=== PATIENT | male | born 1945 | race Caucasian/White ===

== ENCOUNTER 2018-12-28 23:09 | Observation (INO) | payer MEDICARE ==
[~2018-12-28] VITALS: Ht 175.3 cm; Wt 98.9 kg
[2018-12-28 23:38] LABS: BASOPHILS # (AUTO) 0.02 x10^3/uL (0-0.1); BASOPHILS % (AUTO) 0 % (0-1); EOSINOPHILS # (AUTO) 0.19 x10^3/uL (0-0.4); EOSINOPHILS % (AUTO) 3 % (1-7); LYMPHOCYTES # (AUTO) 1.65 x10^3/uL (1-3.4); LYMPHOCYTES % (AUTO) 23 % (22-44); MD NO; MEAN CORPUSCULAR HEMOGLOBIN 30.4 pg (27.5-34.5); MEAN CORPUSCULAR HGB CONC 32.8 g/dL (33.2-36.2); MEAN CORPUSCULAR VOLUME 92.7 fL (81-97); MEAN PLATELET VOLUME 7.6 fL (7.4-10.4); MONOCYTES % (AUTO) 7 % (2-9); NEUTROPHILS # (AUTO) 4.89 x10^3/uL (1.8-6.8); NEUTROPHILS % (AUTO) 67 % (42-75); PLATELET COUNT 181 x10^3/uL (130-400); RED BLOOD COUNT 4.65 x10^6/uL (4.38-5.82)
[2018-12-28 23:49] LABS: ALANINE AMINOTRANSFERASE 16 U/L (12-78); ALBUMIN 3.4 g/dL (3.4-5.0); ANION GAP 9 mmol/L (5-15); CHLORIDE 109 mmol/L (98-107); CREATININE 2.02 mg/dL (0.7-1.3)
[2018-12-28 23:54] LABS: ALKALINE PHOSPHATASE 92 U/L (45-117); BILIRUBIN,TOTAL 0.4 mg/dL (0.2-1.0); FREE T4 (FREE THYROXINE) 0.91 ng/dL (0.76-1.46); TOTAL PROTEIN 7.3 g/dL (6.4-8.2); TROPONIN I < 0.015 ng/mL (0.000-0.045)
[2018-12-28] MEDS ORDERED: ALBUTEROL/IPRATROPIUM 2.5MG/0.5MG, 3 ML ONE (23:59)
[2018-12-29] MEDS ORDERED: ALBUTEROL/IPRATROPIUM 2.5MG/0.5MG, 3 ML NPPB ONE
[2018-12-29] MEDS ORDERED: SODIUM CHLORIDE 0.9% 1,000 ML IV ONE (00:28)
--- NOTE | 2018-12-29 01:02 | NUR ---
ADMITTING MD HAS BEEN AT BEDSIDE FOR THE PAST 40 MINUTES. MD STATES MIGHT NOW ADMIT PT. AWAITING MD TO GET OFF PHONE FOR DISPO.
--- NOTE | 2018-12-29 01:21 | NUR ---
ADMITTING MD BACK AT BEDSIDE FOR DISPO DECISION
[2018-12-29] MEDS ORDERED: TAMS-11 PO (01:45)
[2018-12-29] MEDS ORDERED: MOMETASONE (01:45)
[2018-12-29] MEDS ORDERED: CINA60TA PO (01:45)
[2018-12-29] MEDS ORDERED: FORMOTEROL (01:45)
[2018-12-29] MEDS ORDERED: VITAMIN B12 (01:45)
[2018-12-29] MEDS ORDERED: PRAV40TA PO (01:45)
[2018-12-29] MEDS ORDERED: CHOL200040 PO (01:45)
[2018-12-29] MEDS ORDERED: GLIP5TAB3 PO (01:45)
[2018-12-29] MEDS ORDERED: ASPI-496 PO (01:45)
[2018-12-29] MEDS ORDERED: PRED5TAB PO (01:45)
[2018-12-29] MEDS ORDERED: TACR1CAP4 PO (01:45)
[2018-12-29] MEDS ORDERED: VALA500T PO (01:45)
[2018-12-29] MEDS ORDERED: KCL (01:45)
[2018-12-29] MEDS ORDERED: FERR324T5 PO (01:45)
[2018-12-29] MEDS ORDERED: OXYB5TAB7 PO (01:45)
[2018-12-29] MEDS ORDERED: MYCO250C4 PO (01:45)
[2018-12-29] MEDS ORDERED: TACROLIMUS 1 MG CAPSULE PO SCH (02:00)
[2018-12-29] MEDS ORDERED: NITROGLYCERIN 0.4 MG BOTTLE (25 TABS) SL PRN (02:00)
[2018-12-29 02:15] VITALS: BP 123/71
[2018-12-29 02:16] VITALS: BP 136/78
[2018-12-29 02:17] VITALS: BP 129/76
[2018-12-29 02:28] LABS: HEMOGLOBIN A1C 6.9 % (4.2-6.3)
[2018-12-29] MEDS ORDERED: FLOMAX MC SCH (02:30)
[2018-12-29 03:15] LABS: TROPONIN I 0.029 ng/mL (0.000-0.045)
[2018-12-29 08:12] VITALS: BP 148/71
[2018-12-29] MEDS ORDERED: OXYBUTYNIN CHLORIDE 5 MG TABLET PO SCH (09:00)
[2018-12-29] MEDS ORDERED: PRAVASTATIN SODIUM 40 MG TABLET PO SCH (09:00)
[2018-12-29] MEDS ORDERED: SODIUM CHLORIDE FLUSH 10ML SYR IVF SCH (09:00)
[2018-12-29] MEDS ORDERED: CHOLECALCIFEROL 5,000u TAB PO SCH (09:00)
[2018-12-29] MEDS ORDERED: ASPIRIN 81 MG TABLET EC PO SCH (09:00)
[2018-12-29] MEDS ORDERED: VALACYCLOVIR 500MG TABLET PO SCH (09:00)
[2018-12-29] MEDS ORDERED: CINACALCET 30 MG TABLET PO SCH (09:00)
[2018-12-29] MEDS ORDERED: TAMSULOSIN 0.4 MG CAP.ER.24H PO SCH ×2 (09:00)
== END 2018-12-29 12:05 | disposition home or self-care (01) ==
LOC: ED 12-29 01:30 → INTOOBSV 12-29 01:39 → EDIP 12-29 01:39 → ED 12-29 01:40 → 5SO 12-29 01:59
PROVIDERS: ADMIT Internal Medicine; ATTEND Internal Medicine
DX: R06.02 Shortness of breath (principal); J44.1 Chronic obstructive pulmonary disease with (acute) exacerbation; E11.22 Type 2 diabetes mellitus with diabetic chronic kidney disease; N18.6 End stage renal disease; E61.1 Iron deficiency; N28.9 Disorder of kidney and ureter, unspecified; E53.8 Deficiency of other specified B group vitamins; I48.0 Paroxysmal atrial fibrillation; N32.81 Overactive bladder; N40.0 Benign prostatic hyperplasia without lower urinary tract symptoms; D89.9 Disorder involving the immune mechanism, unspecified; Z79.899 Other long term (current) drug therapy; Z79.82 Long term (current) use of aspirin; Z79.52 Long term (current) use of systemic steroids; Z87.442 Personal history of urinary calculi; Z87.891 Personal history of nicotine dependence; Z88.8 Allergy status to other drugs, medicaments and biological substances
CPT/HCPCS: 36415; 71045; 80053; 80197; 83036; 83735; 84439; 84443; 84484; 85025; 93005; 93306; 94640; 99284; G0378; J7030; J7507; J7512; J7517; J7620; 99285